=== PATIENT | female | born 1930 | race Caucasian/White ===

== ENCOUNTER 2019-05-07 12:48 | Inpatient (IN) | payer MEDICARE, MEDICAID ==
[2019-05-07 13:36] LABS: LYMPHOCYTE ABSOLUTE 1.4 Th/cmm (1.5-3.0); MONOCYTE ABSOLUTE 0.7 Th/cmm (0.3-1.0); WHITE BLOOD COUNT 7.5 Th/cmm (4.8-10.8)
[2019-05-07 13:40] LABS: % BASOPHILS 0.4 % (0.0-2.0); % LYMPHOCYTES 19.3 % (20.0-50.0); % MONOCYTES 9.7 % (2.0-10.0); % NEUTROPHILS 67.6 % (40.0-80.0); EOSINOPHILE ABSOLUTE 0.2 Th/cmm (0.1-0.4); HEMATOCRIT 39.2 % (41.0-60); HEMOGLOBIN 13.3 gm/dL (12-16); MEAN CELL VOLUME 89.4 fl (81-100); MEAN CORPUSCULAR HEMOGLOBIN 30.4 pg (27.0-31.0); NEUTROPHILE ABSOLUTE 5.2 Th/cmm (1.8-8.0); PLATELET COUNT 213 Th/cmm (150-400); RED BLOOD COUNT 4.39 Mil/cmm (3.80-5.20)
[2019-05-07 13:58] LABS: ALB/GLOB RATIO 1.3 (1.0-1.8); ALBUMIN 4.4 gm/dL (3.7-5.3); ALKALINE PHOSPHATASE 52 U/L (34-104); AMYLASE SERUM 59 U/L (29-103); ANION GAP 13.4 (7.0-16.0); BILIRUBIN,TOTAL 0.6 mg/dL (0.3-1.0); BUN - UREA NITROGEN 14 mg/dL (7-25); CALCIUM SERUM 9.7 mg/dL (8.6-10.3); CARBON DIOXIDE 25.4 mEq/L (21.0-31.0); CHLORIDE 102 mEq/L (98-107); CREATININE - SERUM 0.9 mg/dL (0.6-1.2); GLUCOSE 103 mg/dL (70-105); LIPASE 21 U/L (11-82); POTASSIUM SERUM 3.8 mEq/L (3.5-5.1); SGOT 21 U/L (13-39); SGPT/ALT 20 U/L (7-52); SODIUM SERUM 137 mEq/L (136-145); TOTAL PROTEIN,SERUM 7.8 gm/dL (6.0-8.3)
[2019-05-07] MEDS ORDERED: Albuterol Nebulizer 2.5mg/3mL HHN STA (14:54)
[2019-05-07] MEDS ORDERED: Albuterol Nebulizer 2.5mg/3mL HHN ONE (15:11)
--- NOTE | 2019-05-07 15:30 | ED Physician Chart ---
ED Chief Complaint/HPI - Patient Information Date Seen:: 05/07/19 Time Seen:: 13:15 Chief Complaint:: recent muciod cough with nausea vommiting History of Present Illness:: aprox 2 days no prior Allergies:: Allergies Allergy/AdvReac Type Severity Reaction Status Date / Time Penicillins [PCN] Allergy Verified 05/07/19 13:00 Vitals:: Vital Signs - 8 hr 05/07/19 05/07/19 13:01 15:13 Temp 97.8 F HR 91 78 RR 18 18 BP 147/88 O2 Sat % 96 95 Review:: Nurse's Note Reviewed, Old Chart Reviewed, Transfer documents Reviewed , Patient unable to respond ED Review of Systems - Review of Systems General/Constitutional: No fever Skin: No skin lesions Pulmonary: Cough (ros family member) Psychiatric: Other ED Past Medical History - Past Medical History Obtainable: No (lethargic) Past Medical History: PUD/GERD, Dementia (asthma no chf) Family Medical History - Family Member Mother History Unknown: Yes ED Physical Exam - Physical Examination Head: Atraumatic Eyes: Lids, conjuctiva normal Skin: No rash ENMT: External ears, nose nl Neck: Nontender (diminished breath sounds spactic sound) Respiratory: Nl effort/Exclusion (cxr neg pneumo ) Cardio Vascular: RRR, NL S1 S2 GI: No tenderness/rebounding/guarding (distended nonn specific bowel signs ) ED Labs/Radiology/EKG Results - Lab Results Results: Laboratory Tests 05/07/19 05/07/19 13:30 13:30 WBC 7.5 RBC 4.39 Hgb 13.3 Hct 39.2 L MCV 89.4 MCH 30.4 MCHC Differential 34.0 RDW 12.0 Plt Count 213 MPV 7.9 Neutrophils % 67.6 Lymphocytes % 19.3 L Monocytes % 9.7 Eosinophils % 3.0 Basophils % 0.4 Sodium 137 Potassium 3.8 Chloride 102 Carbon Dioxide 25.4 Anion Gap 13.4 BUN 14 Creatinine 0.9 Est GFR ( Amer) TNP Est GFR (Non-Af Amer) TNP BUN/Creatinine Ratio 15.6 Glucose 103 Calcium 9.7 Total Bilirubin 0.6 Direct Bilirubin 0.10 AST 21 ALT 20 Alkaline Phosphatase 52 Total Protein 7.8 Albumin 4.4 Globulin 3.4 Albumin/Globulin Ratio 1.3 Amylase 59 Lipase 21 ED Septic Shock - . Is Septic Shock (SBP<90, OR Lactate>4 mmol\L) present?: No - <6hrs of presentation: Vital Signs: Vital Signs - 8 hr 05/07/19 05/07/19 13:01 15:13 Temp 97.8 F HR 91 78 RR 18 18 BP 147/88 O2 Sat % 96 95
[2019-05-07 18:20] VITALS: BP 155/96
[2019-05-07] MEDS ORDERED: guaiFENesin 200 MG/10 ML UDC PO PRN (19:01)
[2019-05-07] MEDS ORDERED: D5-0.45NS 1,000 ML IV SCH (20:00)
[2019-05-07] MEDS: Magnesium Hydroxide (MOM) 30 mL UDC PO SCH (20:08)
[2019-05-07] MEDS: Atorvastatin Calcium 10 MG TAB PO SCH (20:08)
[2019-05-07] MEDS: Azithromycin 500 MG in Sodium Chloride 0.9% 250 ML IV SCH (20:13)
[2019-05-07] MEDS: D5-0.9%NS 1,000 ML IV SCH (20:16)
[2019-05-07] MEDS ORDERED: Albuterol Nebulizer 2.5mg/3mL HHN SCH (21:00)
[2019-05-07] MEDS ORDERED: Ipratropium Neb 0.5 mg/2.5 mL UD HHN SCH (21:00)
--- NOTE | 2019-05-07 21:36 | History & Physical ---
ADMIT DATE: 05/07/2019 CHIEF COMPLAINT: Cough and intractable nausea and vomiting. HISTORY OF PRESENT ILLNESS: This is an 88-year-old female who is a correction resident, admitted to the Med-Surg unit due to 1-day history of intractable nausea and vomiting associated with recent mucoid cough. No reports of any fevers at the correction. PAST MEDICAL HISTORY: GERD, dementia, asthma. PAST SURGICAL HISTORY: Unknown. ALLERGIES: TO PENICILLIN. FAMILY HISTORY: Noncontributory. SOCIAL HISTORY: The patient is a correction resident. REVIEW OF SYSTEMS: Unable to obtain, the patient is confused. PHYSICAL EXAMINATION: GENERAL: The patient is well-developed, well-nourished, no apparent distress. VITAL SIGNS: Temperature 98.8, heart rate 100, blood pressure 155/96, respirations 18, O2 95%. HEAD: Normocephalic, atraumatic. NECK: Supple. No mass. LUNGS: Few scattered rhonchi. CARDIOVASCULAR: Regular rate and rhythm. ABDOMEN: Soft, nontender. LABORATORY DATA: WBC 7.5, H and H 13.3 and 39.2, platelets 213. Sodium 137, potassium 3.8, chloride 102, BUN 14, creatinine 0.9. DIAGNOSTICS: Chest x-ray is currently pending. ASSESSMENT: Intractable nausea and vomiting, rule out pneumonia, generalized weakness, gastroesophageal reflux disease, dementia, history of asthma, possible asthma exacerbation. PLAN: We will admit the patient to Med/Surg. We will get the patient's followup chest x-ray. IV fluids for hydration. We will also get GI as well as Infectious Disease on the case. Breathing treatments as needed. We will continue to monitor the patient. [facility]# [id number]
[2019-05-08 06:42] LABS: % EOSINOPHILS 2.9 % (0.0-5.0); % LYMPHOCYTES 17.4 % (20.0-50.0); % MONOCYTES 11.3 % (2.0-10.0); % NEUTROPHILS 68.4 % (40.0-80.0); EOSINOPHILE ABSOLUTE 0.2 Th/cmm (0.1-0.4); HEMATOCRIT 37.3 % (41.0-60); HEMOGLOBIN 12.9 gm/dL (12-16); LYMPHOCYTE ABSOLUTE 1.2 Th/cmm (1.5-3.0); MEAN CELL VOLUME 89.7 fl (81-100); MEAN CORPUSCULAR HGB CONC 34.6 pg (28.0-36.0); MONOCYTE ABSOLUTE 0.8 Th/cmm (0.3-1.0); NEUTROPHILE ABSOLUTE 4.8 Th/cmm (1.8-8.0); PLATELET COUNT 187 Th/cmm (150-400); RED BLOOD COUNT 4.16 Mil/cmm (3.80-5.20)
[2019-05-08] MEDS: Albuterol/Ipratropium Neb 3 ML AERS HHN SCH ×4 (06:43→18:41)
[2019-05-08 07:13] LABS: ALB/GLOB RATIO 1.4 (1.0-1.8); ALKALINE PHOSPHATASE 52 U/L (34-104); ANION GAP 12.4 (7.0-16.0); BILIRUBIN,TOTAL 0.6 mg/dL (0.3-1.0); BUN - UREA NITROGEN 14 mg/dL (7-25); CALCIUM SERUM 8.9 mg/dL (8.6-10.3); CARBON DIOXIDE 26.3 mEq/L (21.0-31.0); CHLORIDE 105 mEq/L (98-107); CHOLESTEROL 139 mg/dL (<200); CREATININE - SERUM 0.8 mg/dL (0.6-1.2); GLUCOSE 109 mg/dL (70-105); HDL -HIGH DENSITY LIPOPROTEIN 49 mg/dL (23-92); POTASSIUM SERUM 3.7 mEq/L (3.5-5.1); SGOT 20 U/L (13-39); SGPT/ALT 17 U/L (7-52); SODIUM SERUM 140 mEq/L (136-145); TOTAL PROTEIN,SERUM 6.9 gm/dL (6.0-8.3); TRIGLYCERIDES 106 mg/dL (<150)
[2019-05-08] MEDS ORDERED: Pneumococcal Vaccine 0.5 mL Vial IM ONE (09:00)
[2019-05-08] MEDS: Fish Oil 1,000 MG SGL PO SCH (09:15)
[2019-05-08] MEDS: Pantoprazole 40 mg EC Tab PO SCH (09:15)
[2019-05-08] MEDS: Lactulose 10 Gm/15 mL 30mL UDC PO SCH ×2 (09:15→16:42)
[2019-05-08] MEDS: Calcium Carb/Vit D 500 mg/200 U Tab PO SCH ×2 (09:16→16:42)
--- NOTE | 2019-05-08 09:23 | Diagnostic Imaging Report ---
Portable chest x-ray HISTORY: Shortness of breath Despite a poor inspiration and portable technique, the heart appears to be somewhat enlarged. Atherosclerotic calcination seen in the aorta. No acute focal pulmonary processes. IMPRESSION: 1. Allowing for poor inspiration, no definite acute focal pulmonary processes 2. Cardiomegaly with atherosclerotic vascular changes
[2019-05-08] MEDS: Multivitamin w/ Minerals Tab PO SCH (09:26)
--- NOTE | 2019-05-08 09:32 | Diagnostic Imaging Report ---
Exam: KUB of the abdomen. HISTORY: Obstruction Findings: Portable summation abdomen at 1344 demonstrates nonspecific bowel gas pattern. Fibroid calcifications are noted. Left hip joint prosthesis is noted. Compression fracture of L2 lumbar vertebra most likely old clinical correlation recommended. IMPRESSION: Nonspecific bowel gas pattern. Question of old compression fracture of L2 lumbar vertebra clinical correlation recommended.
--- NOTE | 2019-05-08 09:33 | Diagnostic Imaging Report ---
Portable chest x-ray Time: 1340 History: Pneumonia Allowing for portable technique the heart size is normal. No focal pulmonary parenchymal processes. No hilar or mediastinal abnormalities. Impression: No acute abnormalities.
--- NOTE | 2019-05-08 14:33 | Internal Medicine Prog Note ---
Internal Medicine Subjective - Subjective Service Date: 05/08/19 Patient seen and examined:: with staff Patient is:: awake, verbal Patient Complaints of:: vomitting, cough, other (nausea.) Per staff patient has:: no adverse event, no episodes of fall Internal Medicine Objective - Results Result Diagrams: 05/08/19 05:45 05/08/19 05:45 Recent Labs: Laboratory Last Values WBC 7.0 Th/cmm (4.8-10.8) 05/08/19 05:45 RBC 4.16 Mil/cmm (3.80-5.20) 05/08/19 05:45 Hgb 12.9 gm/dL (12-16) 05/08/19 05:45 Hct 37.3 % (41.0-60) L 05/08/19 05:45 MCV 89.7 fl (81-100) 05/08/19 05:45 MCH 31.0 pg (27.0-31.0) 05/08/19 05:45 MCHC Differential 34.6 pg (28.0-36.0) 05/08/19 05:45 RDW 12.0 % (11.5-20.0) 05/08/19 05:45 Plt Count 187 Th/cmm (150-400) 05/08/19 05:45 MPV 9.0 fl 05/08/19 05:45 Neutrophils % 68.4 % (40.0-80.0) 05/08/19 05:45 Lymphocytes % 17.4 % (20.0-50.0) L 05/08/19 05:45 Monocytes % 11.3 % (2.0-10.0) H 05/08/19 05:45 Eosinophils % 2.9 % (0.0-5.0) 05/08/19 05:45 Basophils % 0.0 % (0.0-2.0) 05/08/19 05:45 Sodium 140 mEq/L (136-145) 05/08/19 05:45 Potassium 3.7 mEq/L (3.5-5.1) 05/08/19 05:45 Chloride 105 mEq/L (98-107) 05/08/19 05:45 Carbon Dioxide 26.3 mEq/L (21.0-31.0) 05/08/19 05:45 Anion Gap 12.4 (7.0-16.0) 05/08/19 05:45 BUN 14 mg/dL (7-25) 05/08/19 05:45 Creatinine 0.8 mg/dL (0.6-1.2) 05/08/19 05:45 Est GFR ( Amer) TNP 05/08/19 05:45 Est GFR (Non-Af Amer) TNP 05/08/19 05:45 BUN/Creatinine Ratio 17.5 05/08/19 05:45 Glucose 109 mg/dL (70-105) H 05/08/19 05:45 Calcium 8.9 mg/dL (8.6-10.3) 05/08/19 05:45 Total Bilirubin 0.6 mg/dL (0.3-1.0) 05/08/19 05:45 Direct Bilirubin 0.10 mg/dL (0.0-0.2) 05/07/19 13:30 AST 20 U/L (13-39) 05/08/19 05:45 ALT 17 U/L (7-52) 05/08/19 05:45 Alkaline Phosphatase 52 U/L (34-104) 05/08/19 05:45 B-Natriuretic Peptide 41.0 pg/mL (5.0-100.0) 05/07/19 13:30 Total Protein 6.9 gm/dL (6.0-8.3) 05/08/19 05:45 Albumin 4.0 gm/dL (3.7-5.3) 05/08/19 05:45 Globulin 2.9 gm/dL 05/08/19 05:45 Albumin/Globulin Ratio 1.4 (1.0-1.8) 05/08/19 05:45 Triglycerides 106 mg/dL (<150) 05/08/19 05:45 Cholesterol 139 mg/dL (<200) 05/08/19 05:45 LDL Cholesterol Direct 68 mg/dL (75-193) L 05/08/19 05:45 HDL Cholesterol 49 mg/dL (23-92) 05/08/19 05:45 Amylase 59 U/L (29-103) 05/07/19 13:30 Lipase 21 U/L (11-82) 05/07/19 13:30 TSH 1.40 uIU/ml (0.34-5.60) 05/08/19 05:45 - Physical Exam Vitals and I&O: Vital Signs Temp 97.2 F 05/08/19 12:00 Pulse 91 05/08/19 12:00 Resp 18 05/08/19 12:00 BP 117/66 05/08/19 12:00 Pulse Ox 96 05/08/19 12:00 Intake & Output 05/07/19 05/08/19 05/08/19 18:59 06:59 18:59 Output Total 3 Balance -3 Weight (lbs) 70.307 kg 70.307 kg Output: Urine 3 Other: # Bowel Movements 0 Weight Source Patient stated Bedscale Active Medications: Current Medications Acetaminophen (Tylenol) 650 mg PO Q4HR PRN PRN Reason: Fever > 101 Stop: 07/06/19 19:01 Albuterol/Ipratropium (Duoneb Neb) 3 ml HHN QIDRT [facility] Stop: 07/06/19 20:59 Last Admin: 05/08/19 10:34 Dose: 3 ml Anastrozole (Arimidex) 1 mg PO DAILY [facility]; Protocol Stop: 07/07/19 08:59 Last Admin: 05/08/19 09:19 Dose: 1 mg Aspirin (Ecotrin) 81 mg PO DAILY [facility] Stop: 07/07/19 08:59 Last Admin: 05/08/19 09:15 Dose: 81 mg Atorvastatin Calcium (Lipitor) 20 mg PO HS [facility] Stop: 07/06/19 20:59 Last Admin: 05/07/19 20:08 Dose: 20 mg Bisacodyl (Dulcolax 10 Mg Supp) 10 mg RC DAILY PRN PRN Reason: Constipation Stop: 07/06/19 19:01 Calcium/Vitamin D (Oscal W/Vitamin D) 1 tab PO BID [facility] Stop: 07/07/19 08:59 Last Admin: 05/08/19 09:16 Dose: 1 tab Cholecalciferol (Vitamin D3) 2,000 iu PO DAILY [facility] Stop: 07/07/19 08:59 Last Admin: 05/08/19 09:26 Dose: 2,000 iu Docusate Sodium (Colace) 100 mg PO BID [facility] Stop: 07/07/19 08:59 Last Admin: 05/08/19 09:15 Dose: 100 mg Fish Oil ([place] 3) 1,000 mg PO DAILY [facility] Stop: 07/07/19 08:59 Last Admin: 05/08/19 09:15 Dose: 1,000 mg Guaifenesin (Robitussin) 100 mg PO Q4H PRN PRN Reason: Cough or Congestion Stop: 07/06/19 19:00 Last Admin: 05/08/19 09:15 Dose: 100 mg Azithromycin 500 mg/ Sodium (Chloride) 250 mls @ 250 mls/hr IV DAILY@2100 YONG Stop: 07/06/19 20:59 Last Admin: 05/07/19 20:13 Dose: 250 mls/hr Dextrose/Sodium Chloride (D5-0.9%Ns) 1,000 mls @ 50 mls/hr IV .Q20H YONG Stop: 07/06/19 19:59 Last Admin: 05/07/19 20:16 Dose: 50 mls/hr Lactulose (Cephulac) 20 gm PO BID YONG Stop: 07/07/19 08:59 Last Admin: 05/08/19 09:15 Dose: 20 gm Lisinopril (Zestril) 10 mg PO DAILY YONG Stop: 07/07/19 08:59 Last Admin: 05/08/19 09:16 Dose: 10 mg Magnesium Hydroxide (Milk Of Magnesia) 30 ml PO HS YONG Stop: 07/06/19 20:59 Last Admin: 05/07/19 20:08 Dose: 30 ml Metoclopramide HCl (Reglan) 5 mg PO TID YONG Stop: 07/06/19 20:59 Last Admin: 05/08/19 09:29 Dose: 5 mg Ondansetron HCl (Zofran) 4 mg IV Q8H PRN PRN Reason: Nausea / Vomiting Stop: 07/06/19 19:00 Pantoprazole Sodium (Protonix) 40 mg PO DAILY [facility] Stop: 07/07/19 08:59 Last Admin: 05/08/19 09:15 Dose: 40 mg Physical Exam: 89 y/o female patient was admitted due to complaints of nausea and vomiting. General: congested HEENT: NC/AT Neck: Supple Lungs: other (cough) Cardiovascular: RRR, Normal S1 Abdomen: soft, non-tender Extremities: clear Neurological: no change Internal Medicine Assmt/Plan - Assessment Assessment: Dementia. Gerd. Asthma. Cough. Nausea. Vomiting. - Plan Plan: Continuation of care. Monitor Labs. Continue present meds as directed. Respiratory treatments and Pulmonary support prn. Aspiration precaution. Monitor Diet/Nutritional support. Pain Management. Physical therapy. Occupational therapy. Fall precaution, frequent nursing rounds, and as needed restraints to prevent fall. Safety precaution. Supportive care. Continue collaborating with consulting specialists, case management and nursing team. Will Monitor patient and continue current treatment plan as ordered. Nutritional Asmnt/Malnutr-PDOC - Dietary Evaluation Malnutrition Findings (Please click <Entered> for more info): see orders.
--- NOTE | 2019-05-08 14:58 | Consultation ---
DATE OF CONSULTATION: 05/08/2019 REQUESTING PHYSICIAN: Dr. Parsons. REASON FOR CONSULTATION: Intractable nausea and vomiting. Thank you for asking me to see this patient in consultation. HISTORY OF PRESENT ILLNESS: This is an 89-year-old female, who has a history of dementia and asthma, who is a jail resident, who was admitted for one day of intractable nausea and vomiting associated with cough. The patient since that time has been given supportive care and management and is starting to improve slowly. PAST MEDICAL HISTORY: GERD, dementia and asthma. FAMILY HISTORY: Noncontributory for GI disease. SOCIAL HISTORY: She [facility] in a jail. REVIEW OF SYSTEMS: Unable to obtain given the patient's current state. PHYSICAL EXAMINATION: VITAL SIGNS: Temperature of 98.8, heart rate of 100, blood pressure 155/96, respirations 18, satting 95% on room air. GENERAL: She is in no acute distress, lying comfortably. HEENT: Normocephalic, atraumatic. PERRLA positive. LUNGS: Clear bilaterally. No wheezes, rales or rhonchi. HEART: Regular rate and rhythm, normal S1, S2. ABDOMEN: Soft, nontender. Bowel sounds are positive. EXTREMITIES: Show no lower extremity edema. PSYCHIATRIC: Alert, not oriented. EXTREMITIES: Show no lower extremity edema. LABORATORY DATA: White count is 7.5, hemoglobin 13.3 and platelets of 213. Sodium is 137, potassium 3.8, chloride 102, BUN 14 and creatinine 0.9. ASSESSMENT AND PLAN: This is an 89-year-old female with asthma, dementia who presents with intractable nausea and vomiting and cough. 1. Intractable nausea and vomiting. 2. Transient abdominal pain. 3. History of dementia. RECOMMENDATIONS: 1. Continue with supportive care management. 2. PPI daily and Zofran as needed. 3. Monitor for any signs of recurrence of nausea or vomiting. If so, would recommend an upper endoscopy for further evaluation and management. Continue with supportive care management per Dr. Parsons's team. Thank you for allowing us to participate in this patient's care. [facility]# [id number]
[2019-05-08] MEDS ORDERED: Fleet Enema 135 mL RC SCH (16:00)
--- NOTE | 2019-05-08 16:03 | Consultation ---
Consult Note - Consult Note Service Date: 05/08/19 Referring Physician: Mickey Parsons Consult Note: PHYSICIAN Consultation Note: Date of Admission: 05/07/19 Purpose of Consultation: Intractable abdominal pain. Chief Complaint: abdominal pain. History of Present Illness: Patient GIOVANNA BRADY was admitted to location Medical/Surgical Unit I with VOMITING UNKNOWN ETIOLOGY. 89 year female brought to the ED for nausea, vomiting, and abdominal pain. On initial evaluation, her temperature was 97.8F and WBC count was 7,500. There is no fever. patient stated that she was doing well at this time. Past Medical History: PUD/GERD, Dementia. Allergies Allergy/AdvReac Type Severity Reaction Status Date / Time Penicillins [PCN] Allergy Verified 05/07/19 16:01 Vital Signs Temp 97.2 F 05/08/19 12:00 Pulse 83 05/08/19 14:52 Resp 18 05/08/19 14:52 BP 117/66 05/08/19 12:00 Pulse Ox 96 05/08/19 14:52 Intake & Output 05/07/19 05/08/19 05/08/19 18:59 06:59 18:59 Output Total 3 Balance -3 Weight (lbs) 70.307 kg 70.307 kg Output: Urine 3 Other: # Bowel Movements 0 Weight Source Patient stated Bedscale Laboratory Results - last 24 hr 05/07/19 05/08/19 05/08/19 13:30 05:45 05:45 WBC 7.0 RBC 4.16 Hgb 12.9 Hct 37.3 L MCV 89.7 MCH 31.0 MCHC Differential 34.6 RDW 12.0 Plt Count 187 MPV 9.0 Neutrophils % 68.4 Lymphocytes % 17.4 L Monocytes % 11.3 H Eosinophils % 2.9 Basophils % 0.0 Sodium 140 Potassium 3.7 Chloride 105 Carbon Dioxide 26.3 Anion Gap 12.4 BUN 14 Creatinine 0.8 Est GFR ( Amer) TNP Est GFR (Non-Af Amer) TNP BUN/Creatinine Ratio 17.5 Glucose 109 H Calcium 8.9 Total Bilirubin 0.6 AST 20 ALT 17 Alkaline Phosphatase 52 B-Natriuretic Peptide 41.0 Total Protein 6.9 Albumin 4.0 Globulin 2.9 Albumin/Globulin Ratio 1.4 Triglycerides 106 Cholesterol 139 LDL Cholesterol Direct 68 L HDL Cholesterol 49 TSH 05/08/19 05:45 WBC RBC Hgb Hct MCV MCH MCHC Differential RDW Plt Count MPV Neutrophils % Lymphocytes % Monocytes % Eosinophils % Basophils % Sodium Potassium Chloride Carbon Dioxide Anion Gap BUN Creatinine Est GFR ( Amer) Est GFR (Non-Af Amer) BUN/Creatinine Ratio Glucose Calcium Total Bilirubin AST ALT Alkaline Phosphatase B-Natriuretic Peptide Total Protein Albumin Globulin Albumin/Globulin Ratio Triglycerides Cholesterol LDL Cholesterol Direct HDL Cholesterol TSH 1.40 Home Medication Medication Instructions Recorded Type Acetaminophen [Tylenol] 2 tab PO Q4HR PRN 05/07/19 History Anastrozole [Arimidex] 1 mg PO DAILY 05/07/19 History Aspirin [Adult Aspirin] 1 mg PO DAILY 05/07/19 History Atorvastatin Calcium [Lipitor] 1 tab PO HS 05/07/19 History Bisacodyl [Dulcolax 10 Mg Supp] 1 sup RC DAILY PRN 05/07/19 History Calcium Carb & Citrate/Vit D3 1 tab PO BID 05/07/19 History [Calcium + D3 ER Tablet] Cholecalciferol (Vit D3) [Vitamin 2 tab PO DAILY 05/07/19 History D3] Denosumab [Prolia] 1 ml SQ 05/07/19 History Docusate Sodium [Colace] 1 cap PO BID 05/07/19 History Fleet Enema 1 unit RC Q24HR 05/07/19 History Lactulose 30 ml PO BID 05/07/19 History Lisinopril 10 mg PO DAILY 05/07/19 History Magnesium Hydroxide [Milk of 30 ml PO HS 05/07/19 History Magnesia] Metoclopramide [Reglan] 1 tab PO TID 05/07/19 History Multivitamin with Minerals 1 tab PO DAILY 05/07/19 History [Multivitamins with Minerals] [place]-3 Fatty Acids [Maxepa] 500 mg PO DAILY 05/07/19 History Omeprazole 20 mg PO DAILY 05/07/19 History Ondansetron HCl [Zofran*] 2 ml IM Q6HR 05/07/19 History Promethazine DM 6.25/15mg-5mL 10 ml PO Q8HR 05/07/19 History [Phenergan DM 6.25/15mg-5 mL] Current Medications Generic Name Dose Route Start Last Admin Trade Name Freq PRN Reason Stop Dose Admin Acetaminophen 650 mg 05/07/19 19:02 Tylenol PO 07/06/19 19:01 Q4HR PRN Fever > 101 Albuterol/Ipratropium 3 ml 05/07/19 21:00 05/08/19 14:52 Duoneb Neb HHN 07/06/19 20:59 3 ml QIDRT YONG Administration Anastrozole 1 mg 05/08/19 09:00 05/08/19 09:19 Arimidex PO 07/07/19 08:59 1 mg DAILY YONG Administration Protocol Aspirin 81 mg 05/08/19 09:00 05/08/19 09:15 Ecotrin PO 07/07/19 08:59 81 mg DAILY YONG Administration Atorvastatin Calcium 20 mg 05/07/19 21:00 05/07/19 20:08 Lipitor PO 07/06/19 20:59 20 mg HS YONG Administration Bisacodyl 10 mg 05/07/19 19:02 Dulcolax 10 Mg Supp RC 07/06/19 19:01 DAILY PRN Constipation Calcium/Vitamin D 1 tab 05/08/19 09:00 05/08/19 09:16 Oscal W/Vitamin D PO 07/07/19 08:59 1 tab BID YONG Administration Cholecalciferol 2,000 iu 05/08/19 09:00 05/08/19 09:26 Vitamin D3 PO 07/07/19 08:59 2,000 iu DAILY YONG Administration Docusate Sodium 100 mg 05/08/19 09:00 05/08/19 09:15 Colace PO 07/07/19 08:59 100 mg BID YONG Administration Fish Oil 1,000 mg 05/08/19 09:00 05/08/19 09:15 [place] 3 PO 07/07/19 08:59 1,000 mg DAILY YONG Administration Guaifenesin 100 mg 05/07/19 19:01 05/08/19 09:15 Robitussin PO 07/06/19 19:00 100 mg Q4H PRN Administration Cough or Congestion Azithromycin 500 mg/ Sodium 250 mls @ 250 mls/hr 05/07/19 21:00 05/07/19 20: 13 Chloride IV 07/06/19 20:59 250 mls/hr DAILY@2100 YONG Administration Dextrose/Sodium Chloride 1,000 mls @ 50 mls/hr 05/07/19 20:00 05/07/19 20:16 D5-0.9%Ns IV 07/06/19 19:59 50 mls/hr .Q20H YONG Administration Lactulose 20 gm 05/08/19 09:00 05/08/19 09:15 Cephulac PO 07/07/19 08:59 20 gm BID YONG Administration Lisinopril 10 mg 05/08/19 09:00 05/08/19 09:16 Zestril PO 07/07/19 08:59 10 mg DAILY YONG Administration Magnesium Hydroxide 30 ml 05/07/19 21:00 05/07/19 20:08 Milk Of Magnesia PO 07/06/19 20:59 30 ml HS YONG Administration Metoclopramide HCl 5 mg 05/07/19 21:00 05/08/19 14:42 Reglan PO 07/06/19 20:59 Not Given TID YONG Ondansetron HCl 4 mg 05/07/19 19:01 Zofran IV 07/06/19 19:00 Q8H PRN Nausea / Vomiting Ondansetron HCl 4 mg 05/08/19 18:00 Zofran IM 07/07/19 17:59 Q6HR YONG Pantoprazole Sodium 40 mg 05/08/19 09:00 05/08/19 09:15 Protonix PO 07/07/19 08:59 40 mg DAILY YONG Administration Promethazine HCl/Dextromethorphan 10 ml 05/08/19 21:00 Phenergan Dm 6.25/15mg-5 Ml PO 07/07/19 20:59 Q8HR YONG Sodium Phosphate ml 05/08/19 16:00 Fleet Enema RC 07/07/19 15:59 Q24HR YONG Review of Systems: A 12 point ROS was reviewed with the pertinent positive and negatives noted in the HPI. Social History Smoking Status Unknown if ever smoked Drug Use UNKNOWN Alcohol Use UNKNOWN Family Medical History Family Medical History Start: 05/07/19 17: 06 Freq: ONCE Status: Active Protocol: Document 05/07/19 18:24 JAREK (Rec: 05/07/19 18:24 JAREK DWAYNE- [id number]) Family Medical History Mother History Unknown Yes Physical Exam: General: Comfortable, not in distress. HEENT: HEAD: NC NT. Oral cavity: mosit, pink tongue. Eyes: pupil PERRLA. EOMI. Neck: Supple, no JVD, no carotid bruit. no use of accessory neck muscles. Cardio: S1 and S2 WNL, no murmur, no gallop. Respiratory: CTAP Abdominal: Soft NT ND, BS present. Genital/Urinary: Extremities: NCCE. Neurological: AAOx3. Assessment: 1. Abdominal pain resolved. no fever. 2. Dementia. 3. PUD. Plan: No further activity from ID point of view. Thank you, Dr Parsons for involving me in taking care of this patient. Signed, Van Miller M.D. 05/08/220771
[2019-05-08] MEDS ORDERED: Fleet Enema 135 mL RC PRN (16:15)
[2019-05-08] MEDS: Azithromycin 500 MG in Sodium Chloride 0.9% 250 ML IV SCH (20:26)
[2019-05-08] MEDS: Promethazine DM 6.25/15mg-5mL 5 ML SYR PO SCH (20:28)
[2019-05-08] MEDS: Atorvastatin Calcium 10 MG TAB PO SCH (20:29)
[2019-05-08] MEDS: Magnesium Hydroxide (MOM) 30 mL UDC PO SCH (20:33)
[2019-05-09] MEDS: Promethazine DM 6.25/15mg-5mL 5 ML SYR PO SCH ×3 (05:02→21:00)
[2019-05-09] MEDS: Albuterol/Ipratropium Neb 3 ML AERS HHN SCH ×4 (07:08→19:11)
[2019-05-09] MEDS: Pantoprazole 40 mg EC Tab PO SCH (08:51)
[2019-05-09] MEDS: Lactulose 10 Gm/15 mL 30mL UDC PO SCH ×2 (08:51→17:28)
[2019-05-09] MEDS: Multivitamin w/ Minerals Tab PO SCH (08:52)
[2019-05-09] MEDS: Calcium Carb/Vit D 500 mg/200 U Tab PO SCH ×2 (08:52→17:28)
[2019-05-09] MEDS: Fish Oil 1,000 MG SGL PO SCH (08:52)
--- NOTE | 2019-05-09 13:13 | GI Progress Note ---
Subjective - Review of Systems Service Date: 05/09/19 Events since last encounter: no new events, eating with family at bedside GI OBJECTIVE - Results Result Diagrams: 05/08/19 05:45 05/08/19 05:45 Recent Labs: Laboratory Last Values WBC 7.0 Th/cmm (4.8-10.8) 05/08/19 05:45 RBC 4.16 Mil/cmm (3.80-5.20) 05/08/19 05:45 Hgb 12.9 gm/dL (12-16) 05/08/19 05:45 Hct 37.3 % (41.0-60) L 05/08/19 05:45 MCV 89.7 fl (81-100) 05/08/19 05:45 MCH 31.0 pg (27.0-31.0) 05/08/19 05:45 MCHC Differential 34.6 pg (28.0-36.0) 05/08/19 05:45 RDW 12.0 % (11.5-20.0) 05/08/19 05:45 Plt Count 187 Th/cmm (150-400) 05/08/19 05:45 MPV 9.0 fl 05/08/19 05:45 Neutrophils % 68.4 % (40.0-80.0) 05/08/19 05:45 Lymphocytes % 17.4 % (20.0-50.0) L 05/08/19 05:45 Monocytes % 11.3 % (2.0-10.0) H 05/08/19 05:45 Eosinophils % 2.9 % (0.0-5.0) 05/08/19 05:45 Basophils % 0.0 % (0.0-2.0) 05/08/19 05:45 Sodium 140 mEq/L (136-145) 05/08/19 05:45 Potassium 3.7 mEq/L (3.5-5.1) 05/08/19 05:45 Chloride 105 mEq/L (98-107) 05/08/19 05:45 Carbon Dioxide 26.3 mEq/L (21.0-31.0) 05/08/19 05:45 Anion Gap 12.4 (7.0-16.0) 05/08/19 05:45 BUN 14 mg/dL (7-25) 05/08/19 05:45 Creatinine 0.8 mg/dL (0.6-1.2) 05/08/19 05:45 Est GFR ( Amer) TNP 05/08/19 05:45 Est GFR (Non-Af Amer) TNP 05/08/19 05:45 BUN/Creatinine Ratio 17.5 05/08/19 05:45 Glucose 109 mg/dL (70-105) H 05/08/19 05:45 Calcium 8.9 mg/dL (8.6-10.3) 05/08/19 05:45 Total Bilirubin 0.6 mg/dL (0.3-1.0) 05/08/19 05:45 Direct Bilirubin 0.10 mg/dL (0.0-0.2) 05/07/19 13:30 AST 20 U/L (13-39) 05/08/19 05:45 ALT 17 U/L (7-52) 05/08/19 05:45 Alkaline Phosphatase 52 U/L (34-104) 05/08/19 05:45 B-Natriuretic Peptide 41.0 pg/mL (5.0-100.0) 05/07/19 13:30 Total Protein 6.9 gm/dL (6.0-8.3) 05/08/19 05:45 Albumin 4.0 gm/dL (3.7-5.3) 05/08/19 05:45 Globulin 2.9 gm/dL 05/08/19 05:45 Albumin/Globulin Ratio 1.4 (1.0-1.8) 05/08/19 05:45 Triglycerides 106 mg/dL (<150) 05/08/19 05:45 Cholesterol 139 mg/dL (<200) 05/08/19 05:45 LDL Cholesterol Direct 68 mg/dL (75-193) L 05/08/19 05:45 HDL Cholesterol 49 mg/dL (23-92) 05/08/19 05:45 Amylase 59 U/L (29-103) 05/07/19 13:30 Lipase 21 U/L (11-82) 05/07/19 13:30 TSH 1.40 uIU/ml (0.34-5.60) 05/08/19 05:45 - Physical Exam Vitals and I&O: Vital Signs Temp 98.3 F 05/09/19 11:45 Pulse 99 05/09/19 11:45 Resp 18 05/09/19 11:45 BP 133/67 05/09/19 11:45 Pulse Ox 94 05/09/19 11:45 Intake & Output 05/08/19 05/09/19 05/09/19 18:59 06:59 18:59 Intake Total 1000 Balance 1000 Weight (lbs) 70.307 kg 70.307 kg Intake: Oral 1000 Other: # Voids 4 3 # Bowel Movements 1 Weight Source Bedscale Bedscale Active Medications: Current Medications Acetaminophen (Tylenol) 650 mg PO Q4HR PRN PRN Reason: Fever > 101 Stop: 07/06/19 19:01 Albuterol/Ipratropium (Duoneb Neb) 3 ml HHN QIDRT [facility] Stop: 07/06/19 20:59 Last Admin: 05/09/19 10:40 Dose: 3 ml Anastrozole (Arimidex) 1 mg PO DAILY [facility]; Protocol Stop: 07/07/19 08:59 Last Admin: 05/08/19 09:19 Dose: 1 mg Aspirin (Ecotrin) 81 mg PO DAILY [facility] Stop: 07/07/19 08:59 Last Admin: 05/09/19 08:52 Dose: 81 mg Atorvastatin Calcium (Lipitor) 20 mg PO HS [facility] Stop: 07/06/19 20:59 Last Admin: 05/08/19 20:29 Dose: 20 mg Bisacodyl (Dulcolax 10 Mg Supp) 10 mg RC DAILY PRN PRN Reason: Constipation Stop: 07/06/19 19:01 Calcium/Vitamin D (Oscal W/Vitamin D) 1 tab PO BID [facility] Stop: 07/07/19 08:59 Last Admin: 05/09/19 08:52 Dose: 1 tab Cholecalciferol (Vitamin D3) 2,000 iu PO DAILY [facility] Stop: 07/07/19 08:59 Last Admin: 05/09/19 08:51 Dose: 2,000 iu Docusate Sodium (Colace) 100 mg PO BID [facility] Stop: 07/07/19 08:59 Last Admin: 05/09/19 08:52 Dose: 100 mg Fish Oil ([place] 3) 1,000 mg PO DAILY [facility] Stop: 07/07/19 08:59 Last Admin: 05/09/19 08:52 Dose: 1,000 mg Guaifenesin (Robitussin) 100 mg PO Q4H PRN PRN Reason: Cough or Congestion Stop: 07/06/19 19:00 Last Admin: 05/08/19 09:15 Dose: 100 mg Azithromycin 500 mg/ Sodium (Chloride) 250 mls @ 250 mls/hr IV DAILY@2100 [facility] Stop: 07/06/19 20:59 Last Admin: 05/08/19 20:26 Dose: 250 mls/hr Dextrose/Sodium Chloride (D5-0.9%Ns) 1,000 mls @ 50 mls/hr IV .Q20H [facility] Stop: 07/06/19 19:59 Last Admin: 05/07/19 20:16 Dose: 50 mls/hr Lactulose (Cephulac) 20 gm PO BID [facility] Stop: 07/07/19 08:59 Last Admin: 05/09/19 08:51 Dose: 20 gm Lisinopril (Zestril) 10 mg PO DAILY [facility] Stop: 07/07/19 08:59 Last Admin: 05/09/19 08:53 Dose: 10 mg Magnesium Hydroxide (Milk Of Magnesia) 30 ml PO HS [facility] Stop: 07/06/19 20:59 Last Admin: 05/08/19 20:33 Dose: Not Given Metoclopramide HCl (Reglan) 5 mg PO TID [facility] Stop: 07/06/19 20:59 Last Admin: 05/09/19 08:52 Dose: 5 mg Ondansetron HCl (Zofran) 4 mg IV Q6HR PRN PRN Reason: NAUSEA/VOMITING Stop: 07/07/19 17:59 Pantoprazole Sodium (Protonix) 40 mg PO DAILY [facility] Stop: 07/07/19 08:59 Last Admin: 05/09/19 08:51 Dose: 40 mg Promethazine HCl/Dextromethorphan (Phenergan Dm 6.25/15mg-5 Ml) 10 ml PO Q8HR [facility] Stop: 07/07/19 20:59 Last Admin: 05/09/19 05:02 Dose: 10 ml Sodium Phosphate (Fleet Enema) 135 ml RC Q24HR PRN PRN Reason: CONSTIPATION Stop: 07/07/19 15:59 HEENT: Atraumatic, PERRLA, EOMI Neck: Supple Cardiovascular: Regular rate, Normal S1, Normal S2 Lungs: Clear to auscultation Abdomen: Bowel sounds Assessment/Plan - Assessment Assessment: 1. Nausea and vomiting 2. Advanced age -Continue with supportive care and management -prn zofran -advance feeds
--- NOTE | 2019-05-09 17:38 | Internal Medicine Prog Note ---
Internal Medicine Subjective - Subjective Service Date: 05/09/19 Patient seen and examined:: with staff Patient is:: awake, verbal Patient Complaints of:: cough Per staff patient has:: no adverse event, no episodes of fall Internal Medicine Objective - Results Result Diagrams: 05/08/19 05:45 05/08/19 05:45 Recent Labs: Laboratory Last Values WBC 7.0 Th/cmm (4.8-10.8) 05/08/19 05:45 RBC 4.16 Mil/cmm (3.80-5.20) 05/08/19 05:45 Hgb 12.9 gm/dL (12-16) 05/08/19 05:45 Hct 37.3 % (41.0-60) L 05/08/19 05:45 MCV 89.7 fl (81-100) 05/08/19 05:45 MCH 31.0 pg (27.0-31.0) 05/08/19 05:45 MCHC Differential 34.6 pg (28.0-36.0) 05/08/19 05:45 RDW 12.0 % (11.5-20.0) 05/08/19 05:45 Plt Count 187 Th/cmm (150-400) 05/08/19 05:45 MPV 9.0 fl 05/08/19 05:45 Neutrophils % 68.4 % (40.0-80.0) 05/08/19 05:45 Lymphocytes % 17.4 % (20.0-50.0) L 05/08/19 05:45 Monocytes % 11.3 % (2.0-10.0) H 05/08/19 05:45 Eosinophils % 2.9 % (0.0-5.0) 05/08/19 05:45 Basophils % 0.0 % (0.0-2.0) 05/08/19 05:45 Sodium 140 mEq/L (136-145) 05/08/19 05:45 Potassium 3.7 mEq/L (3.5-5.1) 05/08/19 05:45 Chloride 105 mEq/L (98-107) 05/08/19 05:45 Carbon Dioxide 26.3 mEq/L (21.0-31.0) 05/08/19 05:45 Anion Gap 12.4 (7.0-16.0) 05/08/19 05:45 BUN 14 mg/dL (7-25) 05/08/19 05:45 Creatinine 0.8 mg/dL (0.6-1.2) 05/08/19 05:45 Est GFR ( Amer) TNP 05/08/19 05:45 Est GFR (Non-Af Amer) TNP 05/08/19 05:45 BUN/Creatinine Ratio 17.5 05/08/19 05:45 Glucose 109 mg/dL (70-105) H 05/08/19 05:45 Calcium 8.9 mg/dL (8.6-10.3) 05/08/19 05:45 Total Bilirubin 0.6 mg/dL (0.3-1.0) 05/08/19 05:45 Direct Bilirubin 0.10 mg/dL (0.0-0.2) 05/07/19 13:30 AST 20 U/L (13-39) 05/08/19 05:45 ALT 17 U/L (7-52) 05/08/19 05:45 Alkaline Phosphatase 52 U/L (34-104) 05/08/19 05:45 B-Natriuretic Peptide 41.0 pg/mL (5.0-100.0) 05/07/19 13:30 Total Protein 6.9 gm/dL (6.0-8.3) 05/08/19 05:45 Albumin 4.0 gm/dL (3.7-5.3) 05/08/19 05:45 Globulin 2.9 gm/dL 05/08/19 05:45 Albumin/Globulin Ratio 1.4 (1.0-1.8) 05/08/19 05:45 Triglycerides 106 mg/dL (<150) 05/08/19 05:45 Cholesterol 139 mg/dL (<200) 05/08/19 05:45 LDL Cholesterol Direct 68 mg/dL (75-193) L 05/08/19 05:45 HDL Cholesterol 49 mg/dL (23-92) 05/08/19 05:45 Amylase 59 U/L (29-103) 05/07/19 13:30 Lipase 21 U/L (11-82) 05/07/19 13:30 TSH 1.40 uIU/ml (0.34-5.60) 05/08/19 05:45 - Physical Exam Vitals and I&O: Vital Signs Temp 96.9 F 05/09/19 16:00 Pulse 83 05/09/19 16:00 Resp 18 05/09/19 16:00 BP 98/47 05/09/19 16:00 Pulse Ox 94 05/09/19 16:00 Intake & Output 05/08/19 05/09/19 05/09/19 18:59 06:59 18:59 Intake Total 1000 Balance 1000 Weight (lbs) 155 lb 155 lb Intake: Oral 1000 Other: # Voids 4 3 # Bowel Movements 1 Weight Source Bedscale Bedscale Active Medications: Current Medications Acetaminophen (Tylenol) 650 mg PO Q4HR PRN PRN Reason: Fever > 101 Stop: 07/06/19 19:01 Albuterol/Ipratropium (Duoneb Neb) 3 ml HHN QIDRT [facility] Stop: 07/06/19 20:59 Last Admin: 05/09/19 15:28 Dose: 3 ml Anastrozole (Arimidex) 1 mg PO DAILY [facility]; Protocol Stop: 07/07/19 08:59 Last Admin: 05/09/19 17:30 Dose: 1 mg Aspirin (Ecotrin) 81 mg PO DAILY [facility] Stop: 07/07/19 08:59 Last Admin: 05/09/19 08:52 Dose: 81 mg Atorvastatin Calcium (Lipitor) 20 mg PO HS [facility] Stop: 07/06/19 20:59 Last Admin: 05/08/19 20:29 Dose: 20 mg Bisacodyl (Dulcolax 10 Mg Supp) 10 mg RC DAILY PRN PRN Reason: Constipation Stop: 07/06/19 19:01 Calcium/Vitamin D (Oscal W/Vitamin D) 1 tab PO BID [facility] Stop: 07/07/19 08:59 Last Admin: 05/09/19 17:28 Dose: 1 tab Cholecalciferol (Vitamin D3) 2,000 iu PO DAILY [facility] Stop: 07/07/19 08:59 Last Admin: 05/09/19 08:51 Dose: 2,000 iu Docusate Sodium (Colace) 100 mg PO BID [facility] Stop: 07/07/19 08:59 Last Admin: 05/09/19 17:28 Dose: 100 mg Fish Oil ([place] 3) 1,000 mg PO DAILY [facility] Stop: 07/07/19 08:59 Last Admin: 05/09/19 08:52 Dose: 1,000 mg Guaifenesin (Robitussin) 100 mg PO Q4H PRN PRN Reason: Cough or Congestion Stop: 07/06/19 19:00 Last Admin: 05/08/19 09:15 Dose: 100 mg Azithromycin 500 mg/ Sodium (Chloride) 250 mls @ 250 mls/hr IV DAILY@2100 [facility] Stop: 07/06/19 20:59 Last Admin: 05/08/19 20:26 Dose: 250 mls/hr Dextrose/Sodium Chloride (D5-0.9%Ns) 1,000 mls @ 50 mls/hr IV .Q20H [facility] Stop: 07/06/19 19:59 Last Admin: 05/07/19 20:16 Dose: 50 mls/hr Lactulose (Cephulac) 20 gm PO BID [facility] Stop: 07/07/19 08:59 Last Admin: 05/09/19 17:28 Dose: 20 gm Lisinopril (Zestril) 10 mg PO DAILY [facility] Stop: 07/07/19 08:59 Last Admin: 05/09/19 08:53 Dose: 10 mg Magnesium Hydroxide (Milk Of Magnesia) 30 ml PO HS [facility] Stop: 07/06/19 20:59 Last Admin: 05/08/19 20:33 Dose: Not Given Metoclopramide HCl (Reglan) 5 mg PO TID [facility] Stop: 07/06/19 20:59 Last Admin: 05/09/19 16:52 Dose: Not Given Ondansetron HCl (Zofran) 4 mg IV Q6HR PRN PRN Reason: NAUSEA/VOMITING Stop: 07/07/19 17:59 Last Admin: 05/09/19 13:30 Dose: 4 mg Pantoprazole Sodium (Protonix) 40 mg PO DAILY [facility] Stop: 07/07/19 08:59 Last Admin: 05/09/19 08:51 Dose: 40 mg Promethazine HCl/Dextromethorphan (Phenergan Dm 6.25/15mg-5 Ml) 10 ml PO Q8HR [facility] Stop: 07/07/19 20:59 Last Admin: 05/09/19 13:30 Dose: 10 ml Sodium Phosphate (Fleet Enema) 135 ml RC Q24HR PRN PRN Reason: CONSTIPATION Stop: 07/07/19 15:59 General: congested HEENT: NC/AT Neck: Supple Lungs: other (cough) Cardiovascular: RRR, Normal S1 Abdomen: soft, non-tender Extremities: clear Neurological: no change Internal Medicine Assmt/Plan - Assessment Assessment: Dementia. Gerd. Asthma. Cough. Nausea. Vomiting. - Plan Plan: Continuation of care. Monitor Labs. Continue present meds as directed. Respiratory treatments and Pulmonary support prn. Aspiration precaution. Monitor Diet/Nutritional support. Pain Management. Physical therapy. Occupational therapy. Fall precaution, frequent nursing rounds, and as needed restraints to prevent fall. Safety precaution. Supportive care. Continue collaborating with consulting specialists, case management and nursing team. Will Monitor patient and continue current treatment plan as ordered.
[2019-05-09] MEDS: Azithromycin 500 MG in Sodium Chloride 0.9% 250 ML IV SCH (20:17)
[2019-05-09] MEDS: Atorvastatin Calcium 10 MG TAB PO SCH (21:00)
[2019-05-09] MEDS: Magnesium Hydroxide (MOM) 30 mL UDC PO SCH (21:01)
[2019-05-10 05:33] LABS: % BASOPHILS 0.8 % (0.0-2.0); % EOSINOPHILS 4.3 % (0.0-5.0); % LYMPHOCYTES 20.7 % (20.0-50.0); % MONOCYTES 10.6 % (2.0-10.0); % NEUTROPHILS 63.6 % (40.0-80.0); BASOPHILE ABSOLUTE 0.1 Th/cumm (0-0.2); EOSINOPHILE ABSOLUTE 0.3 Th/cmm (0.1-0.4); HEMATOCRIT 33.6 % (41.0-60); HEMOGLOBIN 11.4 gm/dL (12-16); LYMPHOCYTE ABSOLUTE 1.4 Th/cmm (1.5-3.0); MEAN CELL VOLUME 90.5 fl (81-100); MEAN CORPUSCULAR HEMOGLOBIN 30.7 pg (27.0-31.0); MONOCYTE ABSOLUTE 0.7 Th/cmm (0.3-1.0); NEUTROPHILE ABSOLUTE 4.4 Th/cmm (1.8-8.0); PLATELET COUNT 173 Th/cmm (150-400); RED BLOOD COUNT 3.72 Mil/cmm (3.80-5.20); WHITE BLOOD COUNT 6.9 Th/cmm (4.8-10.8)
[2019-05-10] MEDS: Promethazine DM 6.25/15mg-5mL 5 ML SYR PO SCH ×3 (05:46→20:31)
[2019-05-10] MEDS: D5-0.9%NS 1,000 ML IV SCH (05:46)
[2019-05-10 06:09] LABS: CALCIUM SERUM 8.7 mg/dL (8.6-10.3); CHLORIDE 107 mEq/L (98-107); CREATININE - SERUM 0.8 mg/dL (0.6-1.2); GLUCOSE 93 mg/dL (70-105); SODIUM SERUM 138 mEq/L (136-145)
[2019-05-10 06:26] LABS: BUN - UREA NITROGEN 13 mg/dL (7-25)
[2019-05-10] MEDS: Albuterol/Ipratropium Neb 3 ML AERS HHN SCH ×4 (07:04→18:55)
[2019-05-10] MEDS: Fish Oil 1,000 MG SGL PO SCH (08:31)
[2019-05-10] MEDS: Pantoprazole 40 mg EC Tab PO SCH (08:31)
[2019-05-10] MEDS: Calcium Carb/Vit D 500 mg/200 U Tab PO SCH ×2 (08:31→16:06)
[2019-05-10] MEDS: Multivitamin w/ Minerals Tab PO SCH (08:31)
[2019-05-10] MEDS: Lactulose 10 Gm/15 mL 30mL UDC PO SCH ×2 (08:33→16:06)
--- NOTE | 2019-05-10 09:54 | GI Progress Note ---
Subjective - Review of Systems Service Date: 05/10/19 Events since last encounter: no new events, resting comfortably GI OBJECTIVE - Results Result Diagrams: 05/10/19 05:25 05/10/19 05:25 Recent Labs: Laboratory Last Values WBC 6.9 Th/cmm (4.8-10.8) 05/10/19 05:25 RBC 3.72 Mil/cmm (3.80-5.20) L 05/10/19 05:25 Hgb 11.4 gm/dL (12-16) L 05/10/19 05:25 Hct 33.6 % (41.0-60) L 05/10/19 05:25 MCV 90.5 fl (81-100) 05/10/19 05:25 MCH 30.7 pg (27.0-31.0) 05/10/19 05:25 MCHC Differential 34.0 pg (28.0-36.0) 05/10/19 05:25 RDW 12.0 % (11.5-20.0) 05/10/19 05:25 Plt Count 173 Th/cmm (150-400) 05/10/19 05:25 MPV 8.0 fl 05/10/19 05:25 Neutrophils % 63.6 % (40.0-80.0) 05/10/19 05:25 Lymphocytes % 20.7 % (20.0-50.0) 05/10/19 05:25 Monocytes % 10.6 % (2.0-10.0) H 05/10/19 05:25 Eosinophils % 4.3 % (0.0-5.0) 05/10/19 05:25 Basophils % 0.8 % (0.0-2.0) 05/10/19 05:25 Sodium 138 mEq/L (136-145) 05/10/19 05:25 Potassium 4.0 mEq/L (3.5-5.1) 05/10/19 05:25 Chloride 107 mEq/L (98-107) 05/10/19 05:25 Carbon Dioxide 23.0 mEq/L (21.0-31.0) 05/10/19 05:25 Anion Gap 12.0 (7.0-16.0) 05/10/19 05:25 BUN 13 mg/dL (7-25) 05/10/19 05:25 Creatinine 0.8 mg/dL (0.6-1.2) 05/10/19 05:25 Est GFR ( Amer) TNP 05/10/19 05:25 Est GFR (Non-Af Amer) TNP 05/10/19 05:25 BUN/Creatinine Ratio 16.3 05/10/19 05:25 Glucose 93 mg/dL (70-105) 05/10/19 05:25 Calcium 8.7 mg/dL (8.6-10.3) 05/10/19 05:25 Total Bilirubin 0.6 mg/dL (0.3-1.0) 05/08/19 05:45 Direct Bilirubin 0.10 mg/dL (0.0-0.2) 05/07/19 13:30 AST 20 U/L (13-39) 05/08/19 05:45 ALT 17 U/L (7-52) 05/08/19 05:45 Alkaline Phosphatase 52 U/L (34-104) 05/08/19 05:45 B-Natriuretic Peptide 41.0 pg/mL (5.0-100.0) 05/07/19 13:30 Total Protein 6.9 gm/dL (6.0-8.3) 05/08/19 05:45 Albumin 4.0 gm/dL (3.7-5.3) 05/08/19 05:45 Globulin 2.9 gm/dL 05/08/19 05:45 Albumin/Globulin Ratio 1.4 (1.0-1.8) 05/08/19 05:45 Triglycerides 106 mg/dL (<150) 05/08/19 05:45 Cholesterol 139 mg/dL (<200) 05/08/19 05:45 LDL Cholesterol Direct 68 mg/dL (75-193) L 05/08/19 05:45 HDL Cholesterol 49 mg/dL (23-92) 05/08/19 05:45 Amylase 59 U/L (29-103) 05/07/19 13:30 Lipase 21 U/L (11-82) 05/07/19 13:30 TSH 1.40 uIU/ml (0.34-5.60) 05/08/19 05:45 - Physical Exam Vitals and I&O: Vital Signs Temp 98.3 F 05/10/19 08:00 Pulse 100 05/10/19 08:31 Resp 16 05/10/19 08:00 BP 128/70 05/10/19 08:31 Pulse Ox 97 05/10/19 08:00 Intake & Output 05/09/19 05/10/19 05/10/19 18:59 06:59 18:59 Intake Total 550 Balance 550 Weight (lbs) 70.307 kg 70.307 kg Intake: Oral 550 Other: # Voids 3 2 # Bowel Movements 0 Weight Source Bedscale Bedscale Active Medications: Current Medications Acetaminophen (Tylenol) 650 mg PO Q4HR PRN PRN Reason: Fever > 101 Stop: 07/06/19 19:01 Albuterol/Ipratropium (Duoneb Neb) 3 ml HHN QIDRT [facility] Stop: 07/06/19 20:59 Last Admin: 05/10/19 07:04 Dose: 3 ml Anastrozole (Arimidex) 1 mg PO DAILY [facility]; Protocol Stop: 07/07/19 08:59 Last Admin: 05/10/19 08:30 Dose: 1 mg Aspirin (Ecotrin) 81 mg PO DAILY [facility] Stop: 07/07/19 08:59 Last Admin: 05/10/19 08:31 Dose: 81 mg Atorvastatin Calcium (Lipitor) 20 mg PO HS [facility] Stop: 07/06/19 20:59 Last Admin: 05/09/19 21:00 Dose: 20 mg Bisacodyl (Dulcolax 10 Mg Supp) 10 mg RC DAILY PRN PRN Reason: Constipation Stop: 07/06/19 19:01 Calcium/Vitamin D (Oscal W/Vitamin D) 1 tab PO BID [facility] Stop: 07/07/19 08:59 Last Admin: 05/10/19 08:31 Dose: 1 tab Cholecalciferol (Vitamin D3) 2,000 iu PO DAILY [facility] Stop: 07/07/19 08:59 Last Admin: 05/10/19 08:31 Dose: 2,000 iu Docusate Sodium (Colace) 100 mg PO BID [facility] Stop: 07/07/19 08:59 Last Admin: 05/10/19 08:30 Dose: 100 mg Fish Oil ([place] 3) 1,000 mg PO DAILY [facility] Stop: 07/07/19 08:59 Last Admin: 05/10/19 08:31 Dose: 1,000 mg Guaifenesin (Robitussin) 100 mg PO Q4H PRN PRN Reason: Cough or Congestion Stop: 07/06/19 19:00 Last Admin: 05/08/19 09:15 Dose: 100 mg Azithromycin 500 mg/ Sodium (Chloride) 250 mls @ 250 mls/hr IV DAILY@2100 [facility] Stop: 07/06/19 20:59 Last Admin: 05/09/19 20:17 Dose: 250 mls/hr Dextrose/Sodium Chloride (D5-0.9%Ns) 1,000 mls @ 50 mls/hr IV .Q20H [facility] Stop: 07/06/19 19:59 Last Admin: 05/10/19 05:46 Dose: 50 mls/hr Lactulose (Cephulac) 20 gm PO BID [facility] Stop: 07/07/19 08:59 Last Admin: 05/10/19 08:33 Dose: 20 gm Lisinopril (Zestril) 10 mg PO DAILY [facility] Stop: 07/07/19 08:59 Last Admin: 05/10/19 08:31 Dose: 10 mg Magnesium Hydroxide (Milk Of Magnesia) 30 ml PO HS [facility] Stop: 07/06/19 20:59 Last Admin: 05/09/19 21:01 Dose: 30 ml Metoclopramide HCl (Reglan) 5 mg PO TID [facility] Stop: 07/06/19 20:59 Last Admin: 05/10/19 08:31 Dose: 5 mg Ondansetron HCl (Zofran) 4 mg IV Q6HR PRN PRN Reason: NAUSEA/VOMITING Stop: 07/07/19 17:59 Last Admin: 05/09/19 13:30 Dose: 4 mg Pantoprazole Sodium (Protonix) 40 mg PO DAILY [facility] Stop: 07/07/19 08:59 Last Admin: 05/10/19 08:31 Dose: 40 mg Promethazine HCl/Dextromethorphan (Phenergan Dm 6.25/15mg-5 Ml) 10 ml PO Q8HR [facility] Stop: 07/07/19 20:59 Last Admin: 05/10/19 05:46 Dose: 10 ml Sodium Phosphate (Fleet Enema) 135 ml RC Q24HR PRN PRN Reason: CONSTIPATION Stop: 07/07/19 15:59 General: Alert, Cooperative HEENT: Atraumatic, PERRLA, EOMI Neck: Supple Cardiovascular: Regular rate, Normal S1, Normal S2 Lungs: Clear to auscultation Abdomen: Bowel sounds Assessment/Plan - Assessment Assessment: 1. Nausea and vomiting 2. Advanced age -Continue with supportive care and management -prn zofran -advance feeding as tolerated
--- NOTE | 2019-05-10 15:58 | Internal Medicine Prog Note ---
Internal Medicine Subjective - Subjective Service Date: 05/10/19 Patient seen and examined:: with staff Patient is:: awake, verbal Patient Complaints of:: vomitting, cough, other (Nausea.) Per staff patient has:: no adverse event, no episodes of fall Internal Medicine Objective - Results Result Diagrams: 05/10/19 05:25 05/10/19 05:25 Recent Labs: Laboratory Last Values WBC 6.9 Th/cmm (4.8-10.8) 05/10/19 05:25 RBC 3.72 Mil/cmm (3.80-5.20) L 05/10/19 05:25 Hgb 11.4 gm/dL (12-16) L 05/10/19 05:25 Hct 33.6 % (41.0-60) L 05/10/19 05:25 MCV 90.5 fl (81-100) 05/10/19 05:25 MCH 30.7 pg (27.0-31.0) 05/10/19 05:25 MCHC Differential 34.0 pg (28.0-36.0) 05/10/19 05:25 RDW 12.0 % (11.5-20.0) 05/10/19 05:25 Plt Count 173 Th/cmm (150-400) 05/10/19 05:25 MPV 8.0 fl 05/10/19 05:25 Neutrophils % 63.6 % (40.0-80.0) 05/10/19 05:25 Lymphocytes % 20.7 % (20.0-50.0) 05/10/19 05:25 Monocytes % 10.6 % (2.0-10.0) H 05/10/19 05:25 Eosinophils % 4.3 % (0.0-5.0) 05/10/19 05:25 Basophils % 0.8 % (0.0-2.0) 05/10/19 05:25 Sodium 138 mEq/L (136-145) 05/10/19 05:25 Potassium 4.0 mEq/L (3.5-5.1) 05/10/19 05:25 Chloride 107 mEq/L (98-107) 05/10/19 05:25 Carbon Dioxide 23.0 mEq/L (21.0-31.0) 05/10/19 05:25 Anion Gap 12.0 (7.0-16.0) 05/10/19 05:25 BUN 13 mg/dL (7-25) 05/10/19 05:25 Creatinine 0.8 mg/dL (0.6-1.2) 05/10/19 05:25 Est GFR ( Amer) TNP 05/10/19 05:25 Est GFR (Non-Af Amer) TNP 05/10/19 05:25 BUN/Creatinine Ratio 16.3 05/10/19 05:25 Glucose 93 mg/dL (70-105) 05/10/19 05:25 Calcium 8.7 mg/dL (8.6-10.3) 05/10/19 05:25 Total Bilirubin 0.6 mg/dL (0.3-1.0) 05/08/19 05:45 Direct Bilirubin 0.10 mg/dL (0.0-0.2) 05/07/19 13:30 AST 20 U/L (13-39) 05/08/19 05:45 ALT 17 U/L (7-52) 05/08/19 05:45 Alkaline Phosphatase 52 U/L (34-104) 05/08/19 05:45 B-Natriuretic Peptide 41.0 pg/mL (5.0-100.0) 05/07/19 13:30 Total Protein 6.9 gm/dL (6.0-8.3) 05/08/19 05:45 Albumin 4.0 gm/dL (3.7-5.3) 05/08/19 05:45 Globulin 2.9 gm/dL 05/08/19 05:45 Albumin/Globulin Ratio 1.4 (1.0-1.8) 05/08/19 05:45 Triglycerides 106 mg/dL (<150) 05/08/19 05:45 Cholesterol 139 mg/dL (<200) 05/08/19 05:45 LDL Cholesterol Direct 68 mg/dL (75-193) L 05/08/19 05:45 HDL Cholesterol 49 mg/dL (23-92) 05/08/19 05:45 Amylase 59 U/L (29-103) 05/07/19 13:30 Lipase 21 U/L (11-82) 05/07/19 13:30 TSH 1.40 uIU/ml (0.34-5.60) 05/08/19 05:45 - Physical Exam Vitals and I&O: Vital Signs Temp 98.5 F 05/10/19 11:57 Pulse 84 05/10/19 15:19 Resp 18 05/10/19 15:19 BP 138/80 05/10/19 11:57 Pulse Ox 96 05/10/19 15:19 Intake & Output 05/09/19 05/10/19 05/10/19 18:59 06:59 18:59 Intake Total 550 Balance 550 Weight (lbs) 70.307 kg 70.307 kg Intake: Oral 550 Other: # Voids 3 2 # Bowel Movements 0 Weight Source Bedscale Bedscale Active Medications: Current Medications Acetaminophen (Tylenol) 650 mg PO Q4HR PRN PRN Reason: Fever > 101 Stop: 07/06/19 19:01 Albuterol/Ipratropium (Duoneb Neb) 3 ml HHN QIDRT [facility] Stop: 07/06/19 20:59 Last Admin: 05/10/19 15:18 Dose: 3 ml Anastrozole (Arimidex) 1 mg PO DAILY [facility]; Protocol Stop: 07/07/19 08:59 Last Admin: 05/10/19 08:30 Dose: 1 mg Aspirin (Ecotrin) 81 mg PO DAILY [facility] Stop: 07/07/19 08:59 Last Admin: 05/10/19 08:31 Dose: 81 mg Atorvastatin Calcium (Lipitor) 20 mg PO HS [facility] Stop: 07/06/19 20:59 Last Admin: 05/09/19 21:00 Dose: 20 mg Bisacodyl (Dulcolax 10 Mg Supp) 10 mg RC DAILY PRN PRN Reason: Constipation Stop: 07/06/19 19:01 Calcium/Vitamin D (Oscal W/Vitamin D) 1 tab PO BID [facility] Stop: 07/07/19 08:59 Last Admin: 05/10/19 08:31 Dose: 1 tab Cholecalciferol (Vitamin D3) 2,000 iu PO DAILY [facility] Stop: 07/07/19 08:59 Last Admin: 05/10/19 08:31 Dose: 2,000 iu Docusate Sodium (Colace) 100 mg PO BID [facility] Stop: 07/07/19 08:59 Last Admin: 05/10/19 08:30 Dose: 100 mg Fish Oil ([place] 3) 1,000 mg PO DAILY [facility] Stop: 07/07/19 08:59 Last Admin: 05/10/19 08:31 Dose: 1,000 mg Guaifenesin (Robitussin) 100 mg PO Q4H PRN PRN Reason: Cough or Congestion Stop: 07/06/19 19:00 Last Admin: 05/08/19 09:15 Dose: 100 mg Azithromycin 500 mg/ Sodium (Chloride) 250 mls @ 250 mls/hr IV DAILY@2100 [facility] Stop: 07/06/19 20:59 Last Admin: 05/09/19 20:17 Dose: 250 mls/hr Dextrose/Sodium Chloride (D5-0.9%Ns) 1,000 mls @ 50 mls/hr IV .Q20H [facility] Stop: 07/06/19 19:59 Last Admin: 05/10/19 05:46 Dose: 50 mls/hr Lactulose (Cephulac) 20 gm PO BID [facility] Stop: 07/07/19 08:59 Last Admin: 05/10/19 08:33 Dose: 20 gm Lisinopril (Zestril) 10 mg PO DAILY [facility] Stop: 07/07/19 08:59 Last Admin: 05/10/19 08:31 Dose: 10 mg Magnesium Hydroxide (Milk Of Magnesia) 30 ml PO HS [facility] Stop: 07/06/19 20:59 Last Admin: 05/09/19 21:01 Dose: 30 ml Metoclopramide HCl (Reglan) 5 mg PO TID [facility] Stop: 07/06/19 20:59 Last Admin: 05/10/19 13:55 Dose: 5 mg Ondansetron HCl (Zofran) 4 mg IV Q6HR PRN PRN Reason: NAUSEA/VOMITING Stop: 07/07/19 17:59 Last Admin: 05/09/19 13:30 Dose: 4 mg Pantoprazole Sodium (Protonix) 40 mg PO DAILY [facility] Stop: 07/07/19 08:59 Last Admin: 05/10/19 08:31 Dose: 40 mg Promethazine HCl/Dextromethorphan (Phenergan Dm 6.25/15mg-5 Ml) 10 ml PO Q8HR [facility] Stop: 07/07/19 20:59 Last Admin: 05/10/19 13:55 Dose: 10 ml Sodium Phosphate (Fleet Enema) 135 ml RC Q24HR PRN PRN Reason: CONSTIPATION Stop: 07/07/19 15:59 Physical Exam: 89 y/o female patient was admitted due to complaints of nausea and vomiting. General: congested HEENT: NC/AT Neck: Supple Lungs: other (cough) Cardiovascular: RRR, Normal S1 Abdomen: soft, non-tender Extremities: clear Neurological: no change Internal Medicine Assmt/Plan - Assessment Assessment: Dementia. Gerd. Asthma. Cough. Nausea. Vomiting. - Plan Plan: Continuation of care. Monitor Labs. Continue present meds as directed. Respiratory treatments and Pulmonary support prn. Aspiration precaution. Monitor Diet/Nutritional support. Pain Management. Physical therapy. Occupational therapy. Fall precaution, frequent nursing rounds, and as needed restraints to prevent fall. Safety precaution. Supportive care. Continue collaborating with consulting specialists, case management and nursing team. Will Monitor patient and continue present care management. Nutritional Asmnt/Malnutr-PDOC - Dietary Evaluation Malnutrition Findings (Please click <Entered> for more info): Nutritional Asmnt/Malnutrition Start: 05/10/19 11: 06 Text: Status: Complete Freq: Protocol: Document 05/10/19 11:06 RAJESH (Rec: 05/10/19 11:14 [email or web address]) Nutritional Asmnt/Malnutrition Patient General Information Nutritional Screening Moderate Risk Diagnosis VOMITING UNKNOWN ETIOLOGY Pertinent Medical Hx/Surgical Hx DEMENTIA, GERD, ASTHMA, N/V Subjective Information PT IS A 88 YEAR OLD FEMALE ADMITTED ON 05/07/19 D/T COUGH AND INTRACTABLE NAUSEA AND VOMITUNG. PT RECORDED FOOD DISLIKES INCLUDE RED MEAT AND PORK (VEGAN). OF TODAY, PT IS NO LONGER NAUSEOUS AND EATING 50% MEALS. HT: 5 FT WT: 155 (70.45KG) BMI: 30.30 (OBESE) GI: WNL, FLAT, SOFT, NON- TENDER BM: 05/09 X1 I/O: 550/NOT NOTED SKIN: WNL, INTACT NIMA: 15 DIET ORDER: CCHO 60GM, CHOPPED , VEGAN ESTIMATED ENERGY NEEDS: ( GERIATRIC) 9404-9193 KCALS (25-30 KCALS/ KG) 70-85 G PRO (1.0-1.2 G/KG) 1862-8608 ML FLUIDS (25-30 ML/ KG) ESTIMATED PT PO INTAKE: 50%, PER MEAL/NUTRITION ACTIVITY RECORD. DIETARY IS CURRENTLY PROVIDING AN ESTIMATED 1252 KCALS AND 60 GM PRO. WITH PT PO INTAKE, PT IS RECEIVING AN ESTIMATED 626 KCALS AND 30 PRO TO MEET 36% KCAL AND 43% PRO NEEDS- INADEQUATE. Current Diet Order/ [facility], [facility], VEGAN Pertinent Medications ALBUTEROL, LIPITOR, DULCOLAX ( PRN), OSCAL W VIT D, VIT D3, D5-0.9% Ns (1000 ML@50ML/HR IV Q20H [facility]ONG), COLACE, FISH OIL, CEPHULAC, MOM, REGLAN, ZOFRAN (PRN), FLEET ENEMA (PRN) Pertinent Labs 05/10: HGB/HCT 11.4/33.6 05/08: HGB/HCT 12.9/37.3, GLUC 109 05/07: HGB/HCT 13.3/39.2 Nutritional Hx/Data Height 12.7 cm Height (Calculated Centimeters) 12.7 Current Weight (lbs) 70.307 kg Weight (Calculated Kilograms) 70.3 Weight (Calculated Grams) 33220.8 [place] Body Weight 100 % [place] Body Weight 155 Body Mass Index (BMI) 4358.6 Weight Status Obese GI Symptoms GI Symptoms None Last BM 05/09 X1 Skin Integrity/Comment: WNL, INTACT Current %PO Fair (50-74%) Estimated Nutritional Goals BEE in Kcals: Adj wt of IBW Calories/Kcals/Kg 25-30 Kcals Calculated 3877-6505 Protein: Adj wt of IBW Protein g/k.0-1.2 Protein Calculated 52-62 Fluid: ml 8763-8617 ML FLUIDS (25-30 ML/ KG) Nutritional Problem 1. Problem Problem POOR PO INTAKE Etiology R/T PREVIOUS NAUSEA AND MEDICAL CONDITION Signs/Symptoms: AEB RECORDED PO MEAL INTAKE 50 % X2 DAYS Malnutrition Related to Morbid Obesity Malnutrition related to morbid obesity No Intervention/Recommendation Comments 1.CONTINUE WITH [facility] 60GM, CHOPPED, VEGAN DIET ORDERED . 2.CONSIDER ADDING NUTRITIONAL SUPPLEMENT IF PO INTAKE DOES NOT IMPROVE WITHIN 2-3 DAYS. Expected Outcomes/Goals Expected Outcomes/Goals 1.PO INTAKE TO MEET >65% NUTRITIONAL NEEDS. 2.MONITOR PO INTAKE, WT, NUTRITION RELATED LABS AND SKIN INTEGRITY. 3.F/U HIGH RISK IN 2-3 DAYS , 05/13-05/14
--- NOTE | 2019-05-10 17:42 | Infectious Disease Prog Note ---
Infectious Disease Subjective - Review of Systems Service Date: 05/10/19 Subjective: There is no new change,. I was called to see the patient and clear for discharge. Infectious Disease Objective - Results Result Diagrams: 05/10/19 05:25 05/10/19 05:25 Recent Labs: Laboratory Last Values WBC 6.9 Th/cmm (4.8-10.8) 05/10/19 05:25 RBC 3.72 Mil/cmm (3.80-5.20) L 05/10/19 05:25 Hgb 11.4 gm/dL (12-16) L 05/10/19 05:25 Hct 33.6 % (41.0-60) L 05/10/19 05:25 MCV 90.5 fl (81-100) 05/10/19 05:25 MCH 30.7 pg (27.0-31.0) 05/10/19 05:25 MCHC Differential 34.0 pg (28.0-36.0) 05/10/19 05:25 RDW 12.0 % (11.5-20.0) 05/10/19 05:25 Plt Count 173 Th/cmm (150-400) 05/10/19 05:25 MPV 8.0 fl 05/10/19 05:25 Neutrophils % 63.6 % (40.0-80.0) 05/10/19 05:25 Lymphocytes % 20.7 % (20.0-50.0) 05/10/19 05:25 Monocytes % 10.6 % (2.0-10.0) H 05/10/19 05:25 Eosinophils % 4.3 % (0.0-5.0) 05/10/19 05:25 Basophils % 0.8 % (0.0-2.0) 05/10/19 05:25 Sodium 138 mEq/L (136-145) 05/10/19 05:25 Potassium 4.0 mEq/L (3.5-5.1) 05/10/19 05:25 Chloride 107 mEq/L (98-107) 05/10/19 05:25 Carbon Dioxide 23.0 mEq/L (21.0-31.0) 05/10/19 05:25 Anion Gap 12.0 (7.0-16.0) 05/10/19 05:25 BUN 13 mg/dL (7-25) 05/10/19 05:25 Creatinine 0.8 mg/dL (0.6-1.2) 05/10/19 05:25 Est GFR ( Amer) TNP 05/10/19 05:25 Est GFR (Non-Af Amer) TNP 05/10/19 05:25 BUN/Creatinine Ratio 16.3 05/10/19 05:25 Glucose 93 mg/dL (70-105) 05/10/19 05:25 Calcium 8.7 mg/dL (8.6-10.3) 05/10/19 05:25 Total Bilirubin 0.6 mg/dL (0.3-1.0) 05/08/19 05:45 Direct Bilirubin 0.10 mg/dL (0.0-0.2) 05/07/19 13:30 AST 20 U/L (13-39) 05/08/19 05:45 ALT 17 U/L (7-52) 05/08/19 05:45 Alkaline Phosphatase 52 U/L (34-104) 05/08/19 05:45 B-Natriuretic Peptide 41.0 pg/mL (5.0-100.0) 05/07/19 13:30 Total Protein 6.9 gm/dL (6.0-8.3) 05/08/19 05:45 Albumin 4.0 gm/dL (3.7-5.3) 05/08/19 05:45 Globulin 2.9 gm/dL 05/08/19 05:45 Albumin/Globulin Ratio 1.4 (1.0-1.8) 05/08/19 05:45 Triglycerides 106 mg/dL (<150) 05/08/19 05:45 Cholesterol 139 mg/dL (<200) 05/08/19 05:45 LDL Cholesterol Direct 68 mg/dL (75-193) L 05/08/19 05:45 HDL Cholesterol 49 mg/dL (23-92) 05/08/19 05:45 Amylase 59 U/L (29-103) 05/07/19 13:30 Lipase 21 U/L (11-82) 05/07/19 13:30 TSH 1.40 uIU/ml (0.34-5.60) 05/08/19 05:45 - Physical Exam Vitals and I&O: Vital Signs Temp 98.7 F 05/10/19 16:00 Pulse 97 05/10/19 16:00 Resp 18 05/10/19 16:00 BP 158/77 05/10/19 16:00 Pulse Ox 100 05/10/19 16:00 Intake & Output 05/09/19 05/10/19 05/10/19 18:59 06:59 18:59 Intake Total 550 Balance 550 Weight (lbs) 70.307 kg 70.307 kg Intake: Oral 550 Other: # Voids 3 2 # Bowel Movements 0 Weight Source Bedscale Bedscale Active Medications: Current Medications Acetaminophen (Tylenol) 650 mg PO Q4HR PRN PRN Reason: Fever > 101 Stop: 07/06/19 19:01 Albuterol/Ipratropium (Duoneb Neb) 3 ml HHN QIDRT [facility] Stop: 07/06/19 20:59 Last Admin: 05/10/19 15:18 Dose: 3 ml Anastrozole (Arimidex) 1 mg PO DAILY [facility]; Protocol Stop: 07/07/19 08:59 Last Admin: 05/10/19 08:30 Dose: 1 mg Aspirin (Ecotrin) 81 mg PO DAILY [facility] Stop: 07/07/19 08:59 Last Admin: 05/10/19 08:31 Dose: 81 mg Atorvastatin Calcium (Lipitor) 20 mg PO HS [facility] Stop: 07/06/19 20:59 Last Admin: 05/09/19 21:00 Dose: 20 mg Bisacodyl (Dulcolax 10 Mg Supp) 10 mg RC DAILY PRN PRN Reason: Constipation Stop: 07/06/19 19:01 Calcium/Vitamin D (Oscal W/Vitamin D) 1 tab PO BID [facility] Stop: 07/07/19 08:59 Last Admin: 05/10/19 16:06 Dose: 1 tab Cholecalciferol (Vitamin D3) 2,000 iu PO DAILY [facility] Stop: 07/07/19 08:59 Last Admin: 05/10/19 08:31 Dose: 2,000 iu Docusate Sodium (Colace) 100 mg PO BID [facility] Stop: 07/07/19 08:59 Last Admin: 05/10/19 16:06 Dose: 100 mg Fish Oil ([place] 3) 1,000 mg PO DAILY [facility] Stop: 07/07/19 08:59 Last Admin: 05/10/19 08:31 Dose: 1,000 mg Guaifenesin (Robitussin) 100 mg PO Q4H PRN PRN Reason: Cough or Congestion Stop: 07/06/19 19:00 Last Admin: 05/08/19 09:15 Dose: 100 mg Azithromycin 500 mg/ Sodium (Chloride) 250 mls @ 250 mls/hr IV DAILY@2100 [facility] Stop: 07/06/19 20:59 Last Admin: 05/09/19 20:17 Dose: 250 mls/hr Dextrose/Sodium Chloride (D5-0.9%Ns) 1,000 mls @ 50 mls/hr IV .Q20H [facility] Stop: 07/06/19 19:59 Last Admin: 05/10/19 05:46 Dose: 50 mls/hr Lactulose (Cephulac) 20 gm PO BID [facility] Stop: 07/07/19 08:59 Last Admin: 05/10/19 16:06 Dose: 20 gm Lisinopril (Zestril) 10 mg PO DAILY [facility] Stop: 07/07/19 08:59 Last Admin: 05/10/19 08:31 Dose: 10 mg Magnesium Hydroxide (Milk Of Magnesia) 30 ml PO HS [facility] Stop: 07/06/19 20:59 Last Admin: 05/09/19 21:01 Dose: 30 ml Metoclopramide HCl (Reglan) 5 mg PO TID [facility] Stop: 07/06/19 20:59 Last Admin: 05/10/19 13:55 Dose: 5 mg Ondansetron HCl (Zofran) 4 mg IV Q6HR PRN PRN Reason: NAUSEA/VOMITING Stop: 07/07/19 17:59 Last Admin: 05/09/19 13:30 Dose: 4 mg Pantoprazole Sodium (Protonix) 40 mg PO DAILY [facility] Stop: 07/07/19 08:59 Last Admin: 05/10/19 08:31 Dose: 40 mg Promethazine HCl/Dextromethorphan (Phenergan Dm 6.25/15mg-5 Ml) 10 ml PO Q8HR [facility] Stop: 07/07/19 20:59 Last Admin: 05/10/19 13:55 Dose: 10 ml Sodium Phosphate (Fleet Enema) 135 ml RC Q24HR PRN PRN Reason: CONSTIPATION Stop: 07/07/19 15:59 General: no acute distress, well developed, well nourished HEENT: atraumatic, normocephalic, PERRLA, EOMI, moist mucous membrane Neck: supple, no thyromegaly, no rigid Cardiovascular: S1S2, regular, no systolic murmur Lungs: clear to auscultation bilaterally, clear to percussion Abdomen: soft, bowel sounds, no tender, no distended, no rebound Extremities: no cyanosis, no clubbing, no edema Neurological: awake, alert, oriented Skin: intact Infectious Disease Assmt/Plan - Assessment Assessment: 1. abdominal pain resolved. 2. PUD 3. Dementia. - Plan Plan: Dc from ID point of view. Nutritional Asmnt/Malnutr-PDOC - Dietary Evaluation Malnutrition Findings (Please click <Entered> for more info): Nutritional Asmnt/Malnutrition Start: 05/10/19 11: 06 Text: Status: Complete Freq: Protocol: Document 05/10/19 11:06 RAJESH (Rec: 05/10/19 11:14 RAJESH [email or web address]) Nutritional Asmnt/Malnutrition Patient General Information Nutritional Screening Moderate Risk Diagnosis VOMITING UNKNOWN ETIOLOGY Pertinent Medical Hx/Surgical Hx DEMENTIA, GERD, ASTHMA, N/V Subjective Information PT IS A 88 YEAR OLD FEMALE ADMITTED ON 05/07/19 D/T COUGH AND INTRACTABLE NAUSEA AND VOMITUNG. PT RECORDED FOOD DISLIKES INCLUDE RED MEAT AND PORK (VEGAN). OF TODAY, PT IS NO LONGER NAUSEOUS AND EATING 50% MEALS. HT: 5 FT WT: 155 (70.45KG) BMI: 30.30 (OBESE) GI: WNL, FLAT, SOFT, NON- TENDER BM: 05/09 X1 I/O: 550/NOT NOTED SKIN: WNL, INTACT NIMA: 15 DIET ORDER: CCHO 60GM, CHOPPED , VEGAN ESTIMATED ENERGY NEEDS: ( GERIATRIC) 5599-4433 KCALS (25-30 KCALS/ KG) 70-85 G PRO (1.0-1.2 G/KG) 3331-1621 ML FLUIDS (25-30 ML/ KG) ESTIMATED PT PO INTAKE: 50%, PER MEAL/NUTRITION ACTIVITY RECORD. DIETARY IS CURRENTLY PROVIDING AN ESTIMATED 1252 KCALS AND 60 GM PRO. WITH PT PO INTAKE, PT IS RECEIVING AN ESTIMATED 626 KCALS AND 30 PRO TO MEET 36% KCAL AND 43% PRO NEEDS- INADEQUATE. Current Diet Order/ Nutrition Support CCHO 60GM, CHOPPED, VEGAN Pertinent Medications ALBUTEROL, LIPITOR, DULCOLAX ( PRN), OSCAL W VIT D, VIT D3, D5-0.9% Ns (1000 ML@50ML/HR IV Q20H YONG), COLACE, FISH OIL, CEPHULAC, MOM, REGLAN, ZOFRAN (PRN), FLEET ENEMA (PRN) Pertinent Labs 05/10: HGB/HCT 11.4/33.6 05/08: HGB/HCT 12.9/37.3, GLUC 109 05/07: HGB/HCT 13.3/39.2 Nutritional Hx/Data Height 12.7 cm Height (Calculated Centimeters) 12.7 Current Weight (lbs) 70.307 kg Weight (Calculated Kilograms) 70.3 Weight (Calculated Grams) 05698.8 [place] Body Weight 100 % [place] Body Weight 155 Body Mass Index (BMI) 4358.6 Weight Status Obese GI Symptoms GI Symptoms None Last BM 05/09 X1 Skin Integrity/Comment: WNL, INTACT Current %PO Fair (50-74%) Estimated Nutritional Goals BEE in Kcals: Adj wt of IBW Calories/Kcals/Kg 25-30 Kcals Calculated 8025-7908 Protein: Adj wt of IBW Protein g/k.0-1.2 Protein Calculated 52-62 Fluid: ml 7498-5917 ML FLUIDS (25-30 ML/ KG) Nutritional Problem 1. Problem Problem POOR PO INTAKE Etiology R/T PREVIOUS NAUSEA AND MEDICAL CONDITION Signs/Symptoms: AEB RECORDED PO MEAL INTAKE 50 % X2 DAYS Malnutrition Related to Morbid Obesity Malnutrition related to morbid obesity No Intervention/Recommendation Comments 1.CONTINUE WITH [facility] 60GM, CHOPPED, VEGAN DIET ORDERED . 2.CONSIDER ADDING NUTRITIONAL SUPPLEMENT IF PO INTAKE DOES NOT IMPROVE WITHIN 2-3 DAYS. Expected Outcomes/Goals Expected Outcomes/Goals 1.PO INTAKE TO MEET >65% NUTRITIONAL NEEDS. 2.MONITOR PO INTAKE, WT, NUTRITION RELATED LABS AND SKIN INTEGRITY. 3.F/U HIGH RISK IN 2-3 DAYS , 05/13-05/14
[2019-05-10] MEDS: Magnesium Hydroxide (MOM) 30 mL UDC PO SCH (20:30)
[2019-05-10] MEDS: Atorvastatin Calcium 10 MG TAB PO SCH (20:30)
[2019-05-10] MEDS: Azithromycin 500 MG in Sodium Chloride 0.9% 250 ML IV SCH (20:47)
--- NOTE | 2019-05-27 09:49 | Discharge Summary ---
DATE OF DISCHARGE: 05/10/2019 HOSPITAL COURSE: The patient was admitted on 05/07/2019 and the patient was discharged on 05/10/2019 to [place] in a stable condition. The patient is very well known to me. The patient came to the [facility] two weeks ago with altered level of consciousness and also was seen in the ER and they found to have UTI, pneumonia, sepsis, dementia, and asthma. The patient was treated for all of that. The patient improved. The patient has been in stable condition and on 05/10/2019 discharged back to [place] where I will follow the patient. FINAL DIAGNOSES: 1. Asthma, resolved. 2. Pneumonia, resolving. 3. Dementia, stable. MEDICATIONS: See the reconciliation sheet. ACTIVITY: As tolerated. CONDITION AT THE TIME OF DISCHARGE: Stable. [facility]# [id number]
== END 2019-05-10 22:15 | DRG 178 ==
LOC: ER 12:48 → MSI 16:37
PROVIDERS: ADMIT Internal Medicine; ATTEND Internal Medicine
DX: J69.0 Pneumonitis due to inhalation of food and vomit (principal); J45.901 Unspecified asthma with (acute) exacerbation; K58.9 Irritable bowel syndrome, unspecified; K27.9 Peptic ulcer, site unspecified, unspecified as acute or chronic, without hemorrhage or perforation; K21.9 Gastro-esophageal reflux disease without esophagitis; F03.90 Unspecified dementia, unspecified severity, without behavioral disturbance, psychotic disturbance, mood disturbance, and anxiety; R10.9 Unspecified abdominal pain; Z88.0 Allergy status to penicillin
CPT/HCPCS: 36415-UA; 71045-TC; 74000-TC; 80048-TC; 80053-TC; 80061-TC; 80076-TC; 82150-TC; 83690-TC; 83880-TC; 84443-TC; 85025-TC; 94640; 94760; J0456; J2405; J7042; J7613; Z7610